=== PATIENT | male | born 1965 | race Caucasian/White ===

== ENCOUNTER 2021-12-05 09:29 | Inpatient (IN) | payer BC, OTHER, SELFPAY ==
[2021-12-05] MEDS ORDERED: ASPIRIN 81 MG CHEWABLE TABLET ONE (10:24)
[2021-12-05 10:25] LABS: Absolute Lymphocytes (CBC) 1.1 K/uL (0.7-4.9); Hematocrit 48.8 % (39.6-49.0); Lymphocytes % 16.4 % (15.3-44.8); MPV 7.9 fL (7.6-11.3)
[2021-12-05] MEDS ORDERED: METOPROLOL TARTRATE 5 MG/5 ML INJ IV ONE ×2 (10:26→11:07)
--- NOTE | 2021-12-05 10:30 | EDPHYS ---
Physician Documentation [facility] Name: Jean Paul Gregorio Jr Age: 55 yrs Sex: Male : 1965 Arrival Date: 12/05/2021 Time: 09:31 Bed 19 Private MD: ED Physician Kierra Parkinson HPI: 12/05 10:02 This 55 yrs old Male presents to ER via Wheelchair with complaints of Chest Pain, pm1 Shortness Of Breath. 10:02 The patient or guardian reports chest pain that is located primarily in the anterior pm1 aspect of right upper chest, anterior aspect of left upper chest and mid-sternal area. Onset: at 08:00. The pain radiates to both arms. Associated signs and symptoms: Pertinent positives: shortness of breath, Pertinent negatives: abdominal pain, dizziness, headache, nausea, vomiting. The chest pain is described as a pressure. 10:02 Duration: The patient or guardian reports a single episode, that is still ongoing, but pm1 improving. Modifying factors: The symptoms are alleviated by nothing. the symptoms are aggravated by nothing. Severity of pain: At its worst the pain was a 7 / 10 in the emergency department the pain has improved is a 4 / 10. The patient has not experienced similar symptoms in the past. The patient has not recently seen a physician, last saw Dr Bah 20 years ago. 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 Patient started to experience chest pain across his chest with numbness tingling to bilateral hands worse to left arm. Patient also experienced shortness of breath with his chest pain. At worst pain 7/10 and has improved to 4/10 on presentation to the ER. Historical: - Allergies: 09:49 PENICILLINS; iw - Home Meds: 09:49 None [Active]; iw - PMHx: 09:49 None; iw - PSHx: 09:49 hernia repair; iw - Immunization history:: Client reports having NOT received the Covid vaccine. - Social history:: Smoking status: Patient reports the use of cigarette tobacco products, cigars. ROS: 10:02 Constitutional: Negative for fever, chills, and weight loss. pm1 10:02 Abdomen/GI: Negative for abdominal pain, nausea, vomiting, diarrhea, and constipation, Back: Negative for injury and pain, MS/Extremity: Negative for injury and deformity, Skin: Negative for injury, rash, and discoloration. 10:02 Cardiovascular: Positive for chest pain. 10:02 Respiratory: Positive for shortness of breath. 10:02 Neuro: Positive for tingling, of the right hand, left hand and left arm, Negative for dizziness, headache. 10:02 All other systems are negative. Exam: 10:02 Head/Face: Normocephalic, atraumatic. pm1 10:02 Constitutional: The patient appears well developed, well hydrated, well groomed, well nourished. 10:02 Back: No spinal tenderness. No costovertebral tenderness. Full range of motion. pm1 Skin: Warm, dry with normal turgor. Normal color with no rashes, no lesions, and no evidence of cellulitis. MS/ Extremity: Pulses equal, no cyanosis. Neurovascular intact. Full, normal range of motion. 10:02 Constitutional: The patient appears uncomfortable. 10:02 Head/face: Exam is negative for acute changes. 10:02 Eyes: Exam is negative for acute changes, Periorbital structures: appear normal, Pupils: no acute changes, Extraocular movements: no acute changes, Conjunctiva: no acute changes, no injection. 10:02 ENT: Exam is negative for acute changes, Mouth: no acute changes, Lips: normal, moist, Oral mucosa: normal, pink and intact, moist. 10:02 Cardiovascular: Exam negative for acute changes, Rate: bradycardic, actual rate is 54 bpm, Rhythm: regular, Pulses: no pulse deficits are appreciated, Heart sounds: normal, normal S1and S2. 10:02 Respiratory: Exam negative for acute changes, respiratory distress, shortness of breath, Breath sounds: are clear throughout. 10:02 Abdomen/GI: Exam negative for acute changes, Inspection: abdomen appears normal, Palpation: abdomen is soft and non-tender, in all quadrants. 10:02 Neuro: Exam negative for acute changes, Orientation: is normal, Mentation: is normal, Motor: is normal, moves all fours. Vital Signs: 09:47 BP 157 / 81; Pulse 54; Resp 18 S; Temp 98.1; Pulse Ox 100% on R/A; Weight 97.52 kg; iw Height 5 ft. 8 in. (172.72 cm); Pain 4/10; 09:47 Body Mass Index 32.69 (97.52 kg, 172.72 cm) iw MDM: 09:56 Patient medically screened. pm1 10:04 Data reviewed: vital signs. Data interpreted: Pulse oximetry: on room air is 100 %. pm1 Interpretation: normal. 10:14 Physician consultation: Jose Enrique Lockhart MD was contacted at 10:14, regarding admission, pm1 patient's condition, and will see patient in the laboratory director, would like medications started, aspirin and lopressor, Activating laboratory director. 10:18 Counseling: I had a detailed discussion with the patient and/or guardian regarding: the pm1 historical points, exam findings, and any diagnostic results supporting the discharge/admit diagnosis, the need for further work-up and treatment in the hospital. 12/05 10:02 Order name: Basic Metabolic Panel; Complete Time: 13:54 pm1 12/05 10:02 Order name: CBC with Diff; Complete Time: 10:33 pm1 12/05 10:02 Order name: LFT's; Complete Time: 13:54 pm1 12/05 10:02 Order name: Magnesium; Complete Time: 13:54 pm1 12/05 10:02 Order name: NT PRO-BNP; Complete Time: 13:54 pm1 12/05 10:02 Order name: PT-INR; Complete Time: 10:36 pm1 12/05 10:02 Order name: Troponin HS; Complete Time: 13:54 pm1 12/05 10:02 Order name: EKG; Complete Time: 10:03 pm1 12/05 10:02 Order name: Cardiac monitoring; Complete Time: 10: pm12/05 10:02 Order name: EKG - Nurse/Tech; Complete Time: 10: pm12/05 10:02 Order name: IV Saline Lock; Complete Time: 10: pm12/05 10:02 Order name: Labs collected and sent; Complete Time: 10: pm12/05 10:02 Order name: O2 Per Protocol; Complete Time: 10: pm12/05 10:02 Order name: O2 Sat Monitoring; Complete Time: 10: pm1 Administered Medications: 10:15 CANCELLED (Physician Discretion): PlaVIX (clopidogrel) 300 mg PO once pm1 10:18 Drug: Aspirin Chewable Tablet 324 mg Route: PO; ss 10:24 Not Given (labor operator states not to give at this time due to HR 61'): Lopressor ss (metoprolol) 5 mg IVP every 5 minutes; Hold for SBP < 100 or HR < 60. x3 Disposition Summary: 12/05/21 10:29 Hospitalization Ordered Hospitalization Status: Inpatient Admission pm1 Provider: Jose Enrique Lockhart pm1 Location: Weight Control Engineer pm1 Condition: Stable pm1 Problem: new pm1 Symptoms: have improved pm1 Bed/Room Type: Standard pm1 Room Assignment: pm1 Diagnosis - ST elevation (STEMI) myocardial infarction of inferior wall pm1 Forms: - Medication Reconciliation Form pm1 - SBAR form pm1 Addendum: 12/07/2021 18:34 Co-signature as Attending Physician, Kierra Parkinson MD. m a2 Signatures: Dispatcher [employer] EDYulissa Nuñez RN RN Carlotta Kumari RN RN Stanley Prater, FAN RUNNER FAN RUNNER pm1 Kierra Parkinson MD MD ma2 Corrections: (The following items were deleted from the chart) 12/05 09:49 09:49 Allergies: No Known Allergies; [facility] 10:15 10:13 PlaVIX (clopidogrel) 300 mg PO once ordered. pm1 pm1
--- NOTE | 2021-12-05 10:30 | ER ---
Nurse's Notes [facility] Name: Jean Paul Gregorio Jr Age: 55 yrs Sex: Male : 1965 Arrival Date: 12/05/2021 Time: 09:31 Bed 19 Private MD: Diagnosis: ST elevation (STEMI) myocardial infarction of inferior wall Presentation: 12/05 09:47 Chief complaint: Patient states: chest tightness and pain radiating into left arm since iw 8 am today, denies n/v, feels clammy. Coronavirus screen: At this time, the client does not indicate any symptoms associated with coronavirus-19. Ebola Screen: Patient negative for fever greater than or equal to 101.5 degrees Fahrenheit, and additional compatible Ebola Virus Disease symptoms Patient denies exposure to infectious person. Patient denies travel to an Ebola-affected area in the 21 days before illness onset. No symptoms or risks identified at this time. Initial Sepsis Screen: Does the patient meet any 2 criteria? No. Patient's initial sepsis screen is negative. Does the patient have a suspected source of infection? No. Patient's initial sepsis screen is negative. Risk Assessment: Do you want to hurt yourself or someone else? Patient reports no desire to harm self or others. Onset of symptoms was December 05, 2021. 09:47 Method Of Arrival: Wheelchair iw 09:47 Acuity: RONI 2 iw Historical: - Allergies: 09:49 PENICILLINS; iw - Home Meds: 09:49 None [Active]; iw - PMHx: 09:49 None; iw - PSHx: 09:49 hernia repair; iw - Immunization history:: Client reports having NOT received the Covid vaccine. - Social history:: Smoking status: Patient reports the use of cigarette tobacco products, cigars. Screenin:20 Abuse screen: Denies threats or abuse. Denies injuries from another. Nutritional ss screening: No deficits noted. Tuberculosis screening: Never had TB. Fall Risk None identified. Assessment: 10:20 Reassessment: construction or leak gang laborer nurses, KOBE Carmona and KOBE Keenan at bedside prepping patient for ss cath and signing consent. 10:25 Reassessment: Pt to RETAIL COSMETICS SALES COUNTER MANAGER NOW WITH NURSES, ON MONITOR. at bedside. construction or leak gang laborer ss team states that patient will return to ER because there are no ICU beds at this time. Vital Signs: 09:47 BP 157 / 81; Pulse 54; Resp 18 S; Temp 98.1; Pulse Ox 100% on R/A; Weight 97.52 kg; iw Height 5 ft. 8 in. (172.72 cm); Pain 4/10; 09:47 Body Mass Index 32.69 (97.52 kg, 172.72 cm) iw ED Course: 09:31 Patient arrived in ED. mr 09:49 Triage completed. iw 09:49 Arm band placed on. iw 09:56 Stanley Prater NP is PHCP. pm1 09:56 Kierra Parkinson MD is Attending Physician. pm1 10:10 Patient has correct armband on for positive identification. alarm security or surveillance monitor on. Pulse ss ox on. NIBP on. 10:10 No provider procedures requiring assistance completed. Inserted saline lock: 20 gauge ss in right antecubital area, using aseptic technique. Blood collected. Patient admitted, IV remains in place. Patient maintains SpO2 saturation greater than 95% on room air. 10:24 Carlotta Kumari RN is Primary Nurse. ss 10:29 Jose Enrique Lockhart MD is Hospitalizing Provider. pm1 10:47 Primary Nurse role handed off by Carlotta Kumari RN ss 10:50 Ruth Escamilla RN is Primary Nurse. vg1 Administered Medications: 10:15 CANCELLED (Physician Discretion): PlaVIX (clopidogrel) 300 mg PO once pm1 10:18 Drug: Aspirin Chewable Tablet 324 mg Route: PO; ss 10:24 Not Given (construction or leak gang laborer states not to give at this time due to HR 61'): Lopressor ss (metoprolol) 5 mg IVP every 5 minutes; Hold for SBP < 100 or HR < 60. x3 Outcome: 10:28 Admitted to Beef Cattle Farm Manager accompanied by nurse, family with patient, via stretcher, Report ss called to KOBE Keenan and KOBE Carmona 10:28 Condition: stable 10:28 Instructed on the need for admit. 10:29 Decision to Hospitalize by Provider. pm1 10:40 Patient left the ED. bd 10:56 Patient left the ED. ss Signatures: Wilda CruzaShira mr Yulissa Shirley RN RN Carlotta Kumari RN RN Stanley Prater NP [facility]IA[facility] pm1 Ruth Escamilla, RN RN vg1 Corrections: (The following items were deleted from the chart) 09:49 09:49 Allergies: No Known Allergies; [facility] 10:10 Admitted to Beef Cattle Farm Manager accompanied by nurse, family with patient, via stretcher, Report called to KOBE Keenan and KOBE Carmona ss 10:10 Condition: stable [facility] 10:10 Instructed on the need for admit, the rehabilitation [facility]
[2021-12-05 10:33] LABS: Protime INR 1.02
[2021-12-05] MEDS ORDERED: FENTANYL CITR 100 MCG/2 ML ONE (10:37)
[2021-12-05] MEDS ORDERED: MIDAZOLAM HCL 2 MG/2 ML INJ ONE ×3 (10:38→11:03)
[2021-12-05] MEDS ORDERED: ATROPINE SULF 1 MG/10 ML SYR IV ONE (10:38)
[2021-12-05] MEDS ORDERED: NA CHLORIDE 0.9% 50 ML ONE ×2 (10:39→10:41)
[2021-12-05] MEDS ORDERED: NITROGLYCERIN/D5W 25 MG/250 ML BTL IV ONE (10:39)
[2021-12-05] MEDS ORDERED: NA CHLORIDE 0.9% 500 ML ONE ×2 (10:44→11:21)
[2021-12-05 10:48] LABS: Albumin 3.9 g/dL (3.4-5.0); Bilirubin Direct 0.2 mg/dL (0-0.2); Bilirubin Total 0.5 mg/dL (0.2-1.0); Magnesium 2.2 mg/dL (1.8-2.4); Potassium 3.7 mmol/L (3.5-5.1); Protein, Total 8.3 g/dL (6.4-8.2)
[2021-12-05 10:52] LABS: Troponin High Sensitivity 459.8 pg/mL (<58.9)
[2021-12-05] MEDS ORDERED: AMIODARONE IN DEXTROSE,ISO-OSM 0 MG/0 ML BAG IV ONE (11:04)
[2021-12-05] MEDS ORDERED: NITROPRUSSIDE 50 MG VIAL IV ONE (11:10)
[2021-12-05] MEDS ORDERED: D5W 250 ML IV ONE (11:10)
[2021-12-05] MEDS ORDERED: PRASUGREL (EFFIENT) 10 MG TAB ONE (11:11)
[2021-12-05] MEDS ORDERED: NITROGLYCERIN 0.4 MG/TAB SL PRN (13:00)
[2021-12-05] MEDS ORDERED: ONDANSETRON 4 MG/2 ML VIAL IV PRN (13:00)
[2021-12-05] MEDS: NA CHLORIDE 0.9% 1,000 ML IV SCH ×2 (13:00→19:39)
[2021-12-05] MEDS ORDERED: MORPHINE 4 MG/ML SYR ONE (14:49)
[2021-12-05] MEDS: MORPHINE 4 MG/ML SYR IV PRN ×2 (14:50→18:29)
[2021-12-05 15:46] VITALS: BMI 32.8
[2021-12-05] MEDS ORDERED: ACETAMINOPHEN 325 MG TABLET PO PRN (16:44)
[2021-12-05] MEDS ORDERED: NA CHLORIDE 0.9% 1,000 ML IV SCH (17:00)
[2021-12-05] MEDS: METOPROLOL TAR 25 MG TAB PO SCH (17:26)
[2021-12-05] MEDS: ATORVASTATIN 80 MG TAB PO SCH (20:05)
[2021-12-06 04:11] VITALS: O2SAT 98
[2021-12-06] MEDS: MORPHINE 4 MG/ML SYR IV PRN ×2 (04:41→17:17)
[2021-12-06 05:00] LABS: Absolute Lymphocytes (CBC) 1.3 K/uL (0.7-4.9); Hematocrit 42.4 % (39.6-49.0); Lymphocytes % 13.1 % (15.3-44.8); MPV 8.2 fL (7.6-11.3); RBC Red Blood Cell Count 4.37 M/uL (4.33-5.43)
[2021-12-06 05:19] LABS: BUN Blood Urea Nitrogen 10 mg/dL (7-18); Bicarbonate 24 mmol/L (21-32); Glucose Level 101 mg/dL (74-106); Potassium 4.1 mmol/L (3.5-5.1); Sodium Level 138 mmol/L (136-145)
[2021-12-06] MEDS: METOPROLOL TAR 25 MG TAB PO SCH ×2 (06:00→17:16)
[2021-12-06] MEDS: ASPIRIN 81 MG CHEWABLE TABLET PO SCH (08:04)
[2021-12-06] MEDS: CLOPIDOGREL 75 MG TABLET PO SCH (08:04)
--- NOTE | 2021-12-06 08:10 | EKG ---
Test Date: 2021-12-05 Test Time: 10:10:03 Mechatronics Engineer: TELMA MEASUREMENT RESULTS: Intervals: Rate: 57 CT: 168 QRSD: 90 QT: 432 QTc: 420 [place]: P: 56 CT: 168 QRS: 77 T: 98 INTERPRETIVE STATEMENTS: Sinus bradycardia Possible Left atrial enlargement ST elevation, consider inferior injury or acute infarct ACUTE WA Consider right ventricular involvement in acute inferior infarct Abnormal ECG Compared to ECG 01/22/1997 07:47:00 ST (T wave) deviation now present Myocardial infarct finding now present Myocardial infarct finding now present Sinus rhythm no longer present Electronically Signed On 12-06-21 08:07:10 CDT by Jose Enrique Lockhart
[2021-12-06] MEDS: NA CHLORIDE 0.9% 1,000 ML IV SCH ×3 (09:09→21:40)
--- NOTE | 2021-12-06 13:44 | ECHO ---
HEIGHT: 5 ft 8 in WEIGHT: 216 lb 0 oz DATE OF STUDY: 12/06/[address]: Jose Enrique Lockhart MD 2-DIMENSIONAL: YES M.MODE: YES DOPPLER: YES COLOR FLOW: YES TDS: NO PORTABLE: YES DEFINITY: NO BUBBLE STUDY: NO DIAGNOSIS: POST STEMI CARDIAC HISTORY: CATHERIZATION: SURGERY: PROSTHETIC VALVE: PACEMAKER: MEASUREMENTS (cm) DIASTOLIC (NORMALS) SYSTOLIC (NORMALS) IVSd 1.1 (0.6-1.2) LA Diam 2.9 (1.9-4.0) LVEF 54% LVIDd 4.8 (3.5-5.7) LVIDs 3.4 (2.0-3.5) %FS 28% LVPWd 1.1 (0.6-1.2) Ao Diam 3.5 (2.0-3.7) 2 DIMENSIONAL ASSESSMENT: RIGHT ATRIUM: NORMAL LEFT ATRIUM: NORMAL RIGHT VENTRICLE: NORMAL LEFT VENTRICLE: NORMAL TRICUSPID VALVE: NORMAL MITRAL VALVE: NORMAL PULMONIC VALVE: NORMAL AORTIC VALVE: NORMAL PERICARDIAL EFFUSION: NONE AORTIC ROOT: NORMAL LEFT VENTRICULAR WALL MOTION: NORMAL. DOPPLER/COLOR FLOW: NORMAL. COMMENTS: NORMAL 2D ECHO WITH DOPPLER. NO WALL MOTION ABNORMALITY. NO EFFUSION. TECHNOLOGIST: TYSON DOHERTY
[2021-12-06] MEDS: ATORVASTATIN 80 MG TAB PO SCH (21:38)
[2021-12-07] MEDS: METOPROLOL TAR 25 MG TAB PO SCH (05:09)
[2021-12-07 05:11] VITALS: BP 131/77
[2021-12-07 05:33] VITALS: TEMP 97.4
[2021-12-07] MEDS: CLOPIDOGREL 75 MG TABLET PO SCH (08:50)
[2021-12-07] MEDS: ASPIRIN 81 MG CHEWABLE TABLET PO SCH (08:50)
--- NOTE | 2021-12-07 12:09 | PN ---
Date of Progress Note: 12/06/2021 Subjective: Mr. Gregorio came in with an acute anterior PR, underwent an angioplasty and stent of th e RCA emergently. Overnight, he has done well. He has some chest pain. Physical Examination: Vital Signs: Stable. He is afebrile. He is in sinus rhythm. Chest: Clear. Extremities: Showed no edema. Groin site is intact without any hematoma. Plan: To continue aspirin, Plavix, Lipitor, and metoprolol and send him home in the morning. VIKASH/JOSIAS Voice ID: [id number] Report ID: [id number]
--- NOTE | 2021-12-07 12:15 | PN ---
Admission Diagnosis: Acute inferior myocardial infarction. Discharge Diagnoses: Acute inferior myocardial infarction, LAD disease, status post primary angiopla sty and stent of the RCA. Discharge Instructions: Plan to follow up in my office in 2 weeks. Normal activities in 48 hours. Low-fat, low-cholesterol diet. He will see me in the office in 2 weeks. Discharge Medications: Include aspirin, Plavix, Lipitor, and metoprolol. Brief Hospital Course: Mr. Gregorio is a patient with no past medical history, admitted with acute i nferior MS, underwent angioplasty and stent of the RCA. He has done very well since without any comp lication. No arrhythmias or congestive heart failure. No groin bleeding. He has LAD disease that n eeds to be attended to down the road. We will plan a stress test in the next few months. He will se e me in the office in 2 weeks. Continue present regimen otherwise. VIKASH/JOSIAS Voice ID: [id number] Report ID: [id number]
--- NOTE | 2021-12-07 13:06 | HP ---
Date of Admission: 12/05/2021 Reason For Admission: Acute inferior DC. History Of Present Illness: Mr. Gregorio is a 55-year-old white male without any past medical histor y, comes in with severe chest pain, substernal, radiating to the jaw and both arms with diaphoresis a nd shortness of breath. EKG showed ST elevation inferiorly. The patient was taken to the labor mediator f rom the emergency room and underwent a catheterization, emergency angioplasty, and stent of the RCA. He was also found to have some LAD disease, which we will plan to tend to later. Past Medical History: Negative. Allergies: NONE. Family History: Noncontributory. Review of Systems: Negative. Social History: Positive for tobacco. Medications: None. Physical Examination: Vital Signs: When I saw him in the emergency room, his vital signs were stable. He was afebrile. H e was in severe chest pain, 8/10. He was in sinus rhythm. HEENT: Negative. Neck: Supple with no bruit. Chest: Clear. Cardiac: Revealed a regular rhythm and rate. No murmurs, gallops, or rubs. Abdomen: Benign. Extremities: Revealed no clubbing, cyanosis, or edema. Diagnostic Data: EKG showed acute inferior DC. Chest x-ray was negative. Labs were pending. Impression And Plan: Acute anterior myocardial infarction. We will go to the labor mediator immediately. Continue aspirin. Continue heparin. We will stop heparin and call to the labor mediator. We will see wh at the catheterization shows before making further decisions. MAYCO Voice ID: [id number]
--- NOTE | 2021-12-07 21:00 | OP ---
Date of Procedure: 12/05/2021 Surgeon: Jose Enrique Lockhart MD Coater Helper: Ms. Ivette Tariq. Procedures: Left heart catheterization, emergency angioplasty and stent to the RCA. Indication: Acute inferior WI. Indications: Mr. Gregorio is 55, no previous history, smoker, came in with an acute inferior WI, bro ught to the laboratory technologist. Procedure In Detail: In the laboratory technologist, heparin had been stopped. He was given aspirin before the cat heterization. He was prepped and draped in routine sterile fashion. Given Versed and fentanyl for s edation. A 6-Armenian sheath introduced in the right common femoral artery successfully using the Seld venkat technique and 10 cc of Xylocaine. Dick catheters were used to do the diagnostic catheteriza tion. He was found to have a completely occluded RCA proximally, large vessel. Left main was normal . Circumflex had diffuse plaquing. The LAD had about 50% proximal LAD, 70% mid LAD with very small distal disease and the LAD is a very small vessel distally about 1.5 mm. We decided to intervene. A JR4 guide catheter 6-Armenian with side hole was used to cannulate the right main. A Lunenburg wire was used to cross the lesion. The patient was pre-dilated with a 3.0 x 15 Emerge noncompliant balloon. Multiple dilatation reestablished flow, some thrombosis. A 3.5 x 20 stent was placed, Synergy with 0 % residual. He was given intracoronary Nipride, intracoronary nitroglycerin, Angiomax, Effient 60 mg with complete resolution of the thrombosis and excellent results. The patient tolerated the procedu re well. He did receive some IV beta blockade for tachycardia. No complications. Blood loss was 5 cc. Total conscious sedation was 60 minutes. The patient received an Angio-Seal in the groin after angiography and showed a normal common femoral artery. Final Diagnoses: 1.Acute inferior myocardial infarction status post successful angioplasty and stent in the right cor onary artery. 2.Left anterior descending artery disease that we may need to tend to later. Plan: Admit him on aspirin, Plavix, Lipitor, low-dose metoprolol. Hopefully send him home in the sc xt day or two. We will eventually do a stress test to see what his LAD status is like and plan inter vention on his LAD as an outpatient. NB/MODL Voice ID: [id number] Report ID: [id number]
== END 2021-12-07 09:15 | disposition home or self-care (01) | DRG 247 ==
LOC: ER 09:29 → 3RD-ICU 12:13 → 2ND 12-06 17:50
PROC: 027034Z Dilation of Coronary Artery, One Artery with Drug-eluting Intraluminal Device, Percutaneous Approach (ICD-10-PCS; principal; 2021-12-05)
PROC: 3E07317 Introduction of Other Thrombolytic into Coronary Artery, Percutaneous Approach (ICD-10-PCS; 2021-12-05)
DX: I21.19 ST elevation (STEMI) myocardial infarction involving other coronary artery of inferior wall (principal); I25.10 Atherosclerotic heart disease of native coronary artery without angina pectoris; F17.210 Nicotine dependence, cigarettes, uncomplicated
CPT/HCPCS: 36415; 80048; 80076; 83735; 83880; 84484; 85025; 85347; 85610; 92928; 92941; 93005; 93306; 93454; 99285; C1725; C1760; C1893; G0269; J0282; J0583; J2250; J3010; J7030; J7040; J7060; Q9967

== ENCOUNTER 2025-01-04 01:26 | Emergency (ER) | payer OTHER, SELFPAY ==
[2025-01-04] MEDS ORDERED: ASPIRIN 81 MG CHEWABLE TABLET ONE (01:36)
[2025-01-04] MEDS ORDERED: NITROGLYCERIN 0.4 MG/TAB SL ONE (01:36)
[2025-01-04] MEDS ORDERED: MORPHINE 4 MG/ML SYR ONE (01:36)
[2025-01-04] MEDS ORDERED: TENECTEPLASE 50 MG/10 ML VIAL IV ONE (01:37)
--- NOTE | 2025-01-04 01:47 | EDPHYS ---
Physician Documentation [facility] Name: Jean Paul Gregorio Jr Age: 59 yrs Sex: Male : 1965 Arrival Date: 01/04/2025 Time: : Bed 4 Private MD: ED Physician Lei Go HPI: 01/04 01:55 This 59 yrs old Male presents to ER via Wheelchair with complaints of Chest Pain, rt Shortness Of Breath. 01:55 Patient presents to the ED with chest pain starting at about 11 PM. Developed shortness rt of breath about an hour following that. Patient states that symptoms have worsened during that time. Denies other acute complaints at this time, symptoms are severe in severity, no other aggravating or alleviating factors.. Historical: - Allergies: :41 PENICILLINS; hm5 - PMHx: :41 Myocardial infarction; hm5 - PSHx: 01:41 hernia repair; Stented artery; hm5 - Immunization history:: Adult Immunizations up to date. - Infectious Disease History:: Denies. - Social history:: Smoking status: unknown. - Family history:: not pertinent. ROS: 01:55 Constitutional: Negative for fever, chills, and weight loss, Abdomen/GI: Negative for rt abdominal pain, nausea, vomiting, diarrhea, and constipation, MS/Extremity: Negative for injury and deformity, Skin: Negative for injury, rash, and discoloration, Neuro: Negative for headache, weakness, numbness, tingling, and seizure, 01:55 Cardiovascular: Positive for chest pain, Negative for edema, 01:55 Respiratory: Positive for shortness of breath, Negative for cough, Exam: 01:55 Head/Face: Normocephalic, atraumatic. Chest/axilla: Normal chest wall appearance and rt motion. Nontender with no deformity. No lesions are appreciated. Cardiovascular: Regular rate and rhythm with a normal S1 and S2. No gallops, murmurs, or rubs. Normal PMI, no JVD. No pulse deficits. MS/ Extremity: Pulses equal, no cyanosis. Neurovascular intact. Full, normal range of motion. Neuro: Awake and alert, GCS 15, oriented to person, place, time, and situation. Cranial nerves II-XII grossly intact. Motor strength 5/5 in all extremities. Sensory grossly intact. Cerebellar exam normal. Normal gait. 01:55 Constitutional: The patient appears Pale, diaphoretic, acutely distressed 01:55 ECG was reviewed by the Attending Physician. 01:55 ECG was reviewed by the Attending Physician. 01:55 Respiratory: Diffuse crackles heard in all lung pearson, severe respiratory distress, Vital Signs: 01:37 BP 170 / 90; Pulse 130; Resp 30; Pulse Ox 78% on 15 lpm Non-rebreather mask; Weight hm5 81.65 kg; Height 5 ft. 3 in. ; 02:00 BP 201 / 113; Pulse 134; Resp 38; Pulse Ox 86% on BiPAP; FiO2 100 %; jb4 02:11 BP 181 / 102; Pulse 117; Resp 38; Pulse Ox 89% on BiPAP; FiO2 100 %; jb4 02:22 BP 159 / 93; Pulse 107; Resp 40; Pulse Ox 96% on BiPAP; FiO2 100 %; jb4 02:55 BP 130 / 84; Pulse 89; Resp 24; Pulse Ox 98% on BiPAP; FiO2 100 %; jb4 01:37 Body Mass Index 31.89 (81.65 kg, 160.02 cm) [facility] MDM: 01:32 Medical Screening Exam initiated rt 02:57 Differential diagnosis: STEMI, acute heart failure. The patient was given aspirin in rt the Emergency Department. Data reviewed: vital signs, nurses notes, lab test result(s), radiologic studies. Consideration of Admission/Observation Patient requires transfer for [facility]. 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 I considered the following discharge prescriptions or medication management in the emergency department Medications were administered in the Emergency Department. See MAR. Independent interpretation of the following test(s) in the Emergency Department X-Ray: My interpretation is Pulmonary edema syndrome interpretation of x-ray images. Care significantly affected by the following chronic conditions: Coronary artery disease. Counseling: I had a detailed discussion with the patient and/or guardian regarding the historical points, exam findings, and any diagnostic results supporting the discharge/admit diagnosis, the need to transfer to another facility. Response to treatment: the patient's symptoms have markedly improved after treatment. 01/04 01:33 Order name: Basic Metabolic Panel; Complete Time: 02:31 rt 01/04 01:33 Order name: CBC with Diff; Complete Time: 02:31 rt 01/04 01:33 Order name: LFT's; Complete Time: 02: rt 01/04 01:33 Order name: NT PRO-BNP; Complete Time: 02: rt 01/04 01:33 Order name: PT-INR; Complete Time: 02: rt 01/04 01:33 Order name: Troponin HS; Complete Time: 02: rt 01/04 01:33 Order name: XRAY Chest (1 view) rt 01/04 01:34 Order name: BIPAP rt 01/04 01:33 Order name: Cardiac monitoring; Complete Time: :41 rt 01/04 01:33 Order name: EKG - Nurse/Tech; Complete Time: : rt 01/04 01:33 Order name: IV Saline Lock; Complete Time: : rt 01/04 01:33 Order name: Labs collected and sent; Complete Time: : rt 01/04 01:33 Order name: O2 Per Protocol; Complete Time: : rt 01/04 01:33 Order name: O2 Sat Monitoring; Complete Time: :41 rt EC:55 Rate is 100 beats/min. Rhythm is regular, Normal Sinus Rhythm with No ectopy. QRS Evans rt is Normal. QRS interval is normal. QT interval is normal. No Q waves. ST Segment is elevated in leads V2, V3, V4. Clinical impression: Acute NC. 01:55 Rate is 130 beats/min. Rhythm is regular, Sinus tachycardia with No ectopy. QRS Evans is rt Normal. AR interval is normal. QRS interval is normal. QT interval is normal. ST Segment is elevated in leads V3, V4, V5. Clinical impression: Acute NC. Administered Medications: 01:41 Drug: Nitroglycerin Sublingual 0.4 mg Sublingual once; every five minute if needed x3 jb4 Route: Sublingual; 03:35 Follow up: Response: No adverse reaction; Marked relief of symptoms jb4 01:42 Drug: morphine IVP or IV 4 mg IVP once over 4 mins Route: IVP; Infused Over: 4 mins; br2 Site: left antecubital; 03:38 Follow up: Response: No adverse reaction; Marked relief of symptoms jb4 01:46 Drug: Aspirin PO Chewable Tablet 324 mg PO once; 81 mg tablets x 4 Route: PO; jb4 01:56 Drug: TNK FOR STROKE - Tenecteplase IV (Administer 10 ml NS flush BEFORE and jb4 AFTER tenecteplase) 0.25 mg/kg IV at per protocol once; 0.25mg/kg, MAX DOSE 25 mg, IVP over 5 seconds {Co-Signature: br2 (Kenzie Rivers RN).} {Note: for [place].} Route: IV; Rate: per protocol; Site: right wrist; 03:38 Follow up: Response: No adverse reaction jb4 02:04 Drug: Clopidogrel PO 300 mg PO once Route: PO; jb4 03:35 Follow up: Response: No adverse reaction jb4 02:04 Drug: Nitroglycerin IV 5 mcg/min IV at calculated rate See Administration Instructions; jb4 Standard concentration 50mg/250mL; Recommended max rate 200 mcg/min; max rate for Angina 400mcg/min; Titrate 5 mcg/min q5min to achieve goal (see titration policy); Goal parameter SBP less than 160 bpm or resolution of chest pain; low-sorbing IV tubing. Route: IV; Rate: calculated rate; Site: right wrist; 03:35 Follow up: IV Status: Infusion continued upon transfer jb4 02:05 Drug: Heparin (NC-Bolus with thrombolytic) - HEParin IVP 60 units/kg IVP once; Max 4000 jb4 units {Co-Signature: br2 (Kenzie Rivers RN).} Route: IVP; Site: left antecubital; 03:38 Follow up: Response: No adverse reaction; Marked relief of symptoms jb4 02:06 Drug: Heparin ([place] Drip) 12 units/kg/[place] - ([place] [address] units, D5W IV 500 ml) IV at jb4 calculated rate Per protocol; Max initial rate 1000 units/hr {Co-Signature: br2 (Kenzie Rivers RN).} Route: IV; Rate: calculated rate; Site: left antecubital; 03:34 Follow up: IV Status: Infusion continued upon transfer jb4 Disposition: 02:57 Critical Care:. rt Disposition Summary: 01/04/25 01:46 Transfer Ordered Notes: Transfer Location: [facility] rt Reason: Higher level of care rt Condition: Critical rt Problem: new rt Symptoms: are unchanged rt Accepting Physician: (01/04/25 03:38) jb4 Diagnosis - ST elevation (STEMI) myocardial infarction of unspecified site rt - Hypoxic respiratory failure rt Forms: - Medication Reconciliation Form rt - SBAR form rt Critical care time excluding procedures: 02:57 Critical care time: Bedside Care: 40 minutes, Consultation: 10 minutes. Total time: 50 rt minutes Signatures: Dispatcher [employer] EDMS Ramos Esteves RN RN jb4 Lei Go MD MD rt Kenzie Rivers RN RN br2 Sera Nava RN RN hm5 Kenzie Rivers RN br2 Corrections: (The following items were deleted from the chart) 01:34 01:34 BASIC METABOLIC PANEL+C.LAB.BRZ ordered. EDMS EDMS 01:34 01:34 CBC+H.LAB.BRZ ordered. EDMS EDMS 01:34 01:34 HEPATIC FUNCTION+C.LAB.BRZ ordered. EDMS EDMS 01:34 01:34 PROBNP+C.LAB.BRZ ordered. EDMS EDMS 01:34 01:34 PROTIME (+INR)+COAG.LAB.BRZ ordered. EDMS EDMS 01:34 01:34 Troponin High Sensitivity+C.LAB.BRZ ordered. EDMS EDMS 01:34 01:34 Chest Single View+RAD.RAD.BRZ ordered. EDMS EDMS 03:38 01:46 rt jb4
--- NOTE | 2025-01-04 01:47 | ER ---
Nurse's Notes [facility] Name: Jean Paul Gregorio Jr Age: 59 yrs Sex: Male : 1965 Arrival Date: 01/04/2025 Time: 01:26 Bed 4 Private MD: Diagnosis: ST elevation (STEMI) myocardial infarction of unspecified site;Hypoxic respiratory failure Presentation: 01/04 01:37 Chief complaint: Spouse and/or significant other states: c/o CP and SOB for past 1-2 [facility] hours. Coronavirus screen: At this time, the client does not indicate any symptoms associated with coronavirus-19. Ebola Screen: No symptoms or risks identified at this time. Initial Sepsis Screen: Does the patient meet any 2 criteria? HR > 90 bpm. No. Patient's initial sepsis screen is negative. Does the patient have a suspected source of infection? No. Patient's initial sepsis screen is negative. Risk Assessment: Do you want to hurt yourself or someone else? Patient reports no desire to harm self or others. Onset of symptoms was January 04, 2025. 01:37 Method Of Arrival: Wheelchair [facility] 01:37 Acuity: RONI 2 [facility] Triage Assessment: 01:41 General: Appears distressed, uncomfortable, Behavior is cooperative, anxious, restless. 5 Pain: Complains of pain in chest. EENT: No signs and/or symptoms were reported regarding the EENT system. Neuro: Level of Consciousness is awake, alert, obeys commands, Oriented to person, place, time, situation. Cardiovascular: Capillary refill < 3 seconds Chest pain is described as severe. Respiratory: Airway is patent Respiratory effort is labored, gasping, Respiratory pattern is symmetrical, hyperventilation. GI: No signs and/or symptoms were reported involving the gastrointestinal system. : No signs and/or symptoms were reported regarding the genitourinary system. Derm: Skin is intact, Skin is clammy, diaphoretic, Skin is dusky, Skin temperature is cool. Historical: - Allergies: 01:41 PENICILLINS; hm5 - PMHx: 01:41 Myocardial infarction; hm5 - PSHx: 01:41 hernia repair; Stented artery; hm5 - Immunization history:: Adult Immunizations up to date. - Infectious Disease History:: Denies. - Social history:: Smoking status: unknown. - Family history:: not pertinent. Screenin:51 [facility] ED Fall Risk Assessment (Adult) History of falling in the last 3 months, 5 including since admission No falls in past 3 months (0 pts) Confusion or Disorientation No (0 pts) Intoxicated or Sedated No (0 pts) Impaired Gait No (0 pts) Mobility Assist Device Used No (0 pt) Altered Elimination No (0 pt) Score/Fall Risk Level 0 - 2 = Low Risk Oriented to surroundings, Maintained a safe environment, Hourly rounding (assess needs \T\ fall precautionary measures) done. Abuse screen: Denies threats or abuse. Denies injuries from another. Nutritional screening: No deficits noted. Tuberculosis screening: No symptoms or risk factors identified. Assessment: 01:50 Pain: Pain does not radiate. Pain began 2 hours ago. Respiratory: Patient placed on hm5 BiPAP: Inspiratory Pressure: 14 Expiratory (EPAP) Pressure: 8 FiO2%: 100 Respiratory Rate: 18. 02:30 Reassessment: Pt feeling much better, denies chest pain, reports SOB has improved. jb4 03:08 Reassessment: Pt remains diaphoretic on his scalp, reports feeling significantly jb4 better, denies SOB or CP. Pt transferred to receiving facility via Life flight. Vital Signs: 01:37 BP 170 / 90; Pulse 130; Resp 30; Pulse Ox 78% on 15 lpm Non-rebreather mask; Weight 5 81.65 kg; Height 5 ft. 3 in. ; 02:00 BP 201 / 113; Pulse 134; Resp 38; Pulse Ox 86% on BiPAP; FiO2 100 %; jb4 02:11 BP 181 / 102; Pulse 117; Resp 38; Pulse Ox 89% on BiPAP; FiO2 100 %; jb4 02:22 BP 159 / 93; Pulse 107; Resp 40; Pulse Ox 96% on BiPAP; FiO2 100 %; jb4 02:55 BP 130 / 84; Pulse 89; Resp 24; Pulse Ox 98% on BiPAP; FiO2 100 %; jb4 01:37 Body Mass Index 31.89 (81.65 kg, 160.02 cm) [facility] ED Course: 01:30 Patient arrived in ED. rv1 01:32 Lei Go MD is Attending Physician. rt 01:32 Initiated transfer with Yuly at [facility]. rv1 01:37 Sera Nava, RN is Primary Nurse. hm5 01:41 Triage completed. hm5 01:42 Arm band placed on right wrist. Patient placed in the treatment room, in view of staff [facility] members, on oxygen, on monitor technician, on pulse oximetry. 01:51 Patient has correct armband on for positive identification. Bed in low position. Call 5 light in reach. Side rails up X2. Provided Education on: plan of care, need for transfer. Client placed on continuous cardiac and pulse oximetry monitoring. NIBP monitoring applied. nuclear monitoring technician on. Pulse ox on. 01:51 No provider procedures requiring assistance completed. Inserted saline lock: 20 gauge hm5 in right forearm, using aseptic technique. Blood collected. Flushed with 10 mL NS. O2 via BiPAP. 01:52 Inserted saline lock: 18 gauge in left antecubital area, using aseptic technique. hm5 Flushed with 10 mL NS. 02:[address] Brian to [facility] CCU 2 [id number]. Report # [id number]. rv1 02:06 Called [facility], Corie said she would call me back to take rv1 information as she was dealing with a problem. 02:15 XRAY Chest (1 view) In Process Unspecified. EDMS 02:16 Corie with [facility] gave 32 min ETA. rv1 02:33 Corie with [facility] called to give update that ETA is 15 mins. rv1 03:38 Patient transferred, IV remains in place. jb4 Administered Medications: 01:41 Drug: Nitroglycerin Sublingual 0.4 mg Sublingual once; every five minute if needed x3 jb4 Route: Sublingual; 03:35 Follow up: Response: No adverse reaction; Marked relief of symptoms jb4 01:42 Drug: morphine IVP or IV 4 mg IVP once over 4 mins Route: IVP; Infused Over: 4 mins; br2 Site: left antecubital; 03:38 Follow up: Response: No adverse reaction; Marked relief of symptoms jb4 01:46 Drug: Aspirin PO Chewable Tablet 324 mg PO once; 81 mg tablets x 4 Route: PO; jb4 01:56 Drug: TNK FOR STROKE - Tenecteplase IV (Administer 10 ml NS flush BEFORE and jb4 AFTER tenecteplase) 0.25 mg/kg IV at per protocol once; 0.25mg/kg, MAX DOSE 25 mg, IVP over 5 seconds {Co-Signature: br2 (Kenzie Rivers RN).} {Note: for [place].} Route: IV; Rate: per protocol; Site: right wrist; 03:38 Follow up: Response: No adverse reaction jb4 02:04 Drug: Clopidogrel PO 300 mg PO once Route: PO; jb4 03:35 Follow up: Response: No adverse reaction jb4 02:04 Drug: Nitroglycerin IV 5 mcg/min IV at calculated rate See Administration Instructions; jb4 Standard concentration 50mg/250mL; Recommended max rate 200 mcg/min; max rate for Angina 400mcg/min; Titrate 5 mcg/min q5min to achieve goal (see titration policy); Goal parameter SBP less than 160 bpm or resolution of chest pain; low-sorbing IV tubing. Route: IV; Rate: calculated rate; Site: right wrist; 03:35 Follow up: IV Status: Infusion continued upon transfer jb4 02:05 Drug: Heparin ([place]-Bolus with thrombolytic) - HEParin IVP 60 units/kg IVP once; Max 4000 jb4 units {Co-Signature: br2 (Kenzie Rivers RN).} Route: IVP; Site: left antecubital; 03:38 Follow up: Response: No adverse reaction; Marked relief of symptoms jb4 02:06 Drug: Heparin ([place] Drip) 12 units/kg/[place] - ([place] [address] units, D5W IV 500 ml) IV at jb4 calculated rate Per protocol; Max initial rate 1000 units/hr {Co-Signature: br2 (Kenzie Rivers RN).} Route: IV; Rate: calculated rate; Site: left antecubital; 03:34 Follow up: IV Status: Infusion continued upon transfer jb4 Medication: 01:51 VIS not applicable for this client. hm5 Outcome: 01:46 ER care complete, transfer ordered by . rt 03:33 Transferred by helicopter to [facility], Transfer form completed. jb4 X-rays sent w/ patient. 03:33 Condition: stable 03:33 Discharge instructions given to patient, significant other, Instructed on the need for transfer, Demonstrated understanding of instructions, 03:38 Patient left the ED. jb4 Signatures: Dispatcher [employer] EDMS Ramos Esteves, RN RN jb4 Lei Go MD MD rt Coleen Bonilla rv1 Kenzie Rivers RN RN br2 Sera Nava RN RN hm5 Kenzie Rivers RN br2 Corrections: (The following items were deleted from the chart) 01:50 01:41 Respiratory: Airway is patent Respiratory effort is labored, gasping, Respiratory hm5 pattern is symmetrical, hyperventilation Patient placed on BiPAP: Inspiratory Pressure: 14 Expiratory (EPAP) Pressure: 8 FiO2%: 100 Respiratory Rate: 18 hm5 02:11 02:08 BP 201 / 113; Pulse 134bpm; Resp 38bpm; Pulse Ox 86% BiPAP FiO2 100%; jb4 jb4 03:12 03:11 Diet: rv1 rv1
[2025-01-04] MEDS ORDERED: HEPARIN 5000 UNIT/ML 1 ML VIAL ONE (01:51)
[2025-01-04] MEDS ORDERED: HEPARIN/D5W 25,000 UNIT/500 ML BAG IV ONE (01:51)
[2025-01-04] MEDS ORDERED: CLOPIDOGREL 75 MG TABLET ONE (01:51)
[2025-01-04] MEDS ORDERED: NITROGLYCERIN/D5W 50 MG/250 ML BTL IV ONE (01:51)
[2025-01-04 01:59] LABS: Absolute Basophils 0.1 K/uL (0-0.5); Absolute Eosinophils 0.2 K/uL (0-0.5); Absolute Monocytes 0.9 K/uL (0.1-1.3); Absolute Neutrophil 7.1 K/uL (1.8-8.0); Basophils % 0.8 % (0-1.3); Eosinophils % 1.5 % (0-4.4); Hematocrit 54.5 % (39.6-49.0); Hemoglobin 18.8 g/dL (13.6-17.9); Lymphocytes % 42.1 % (15.3-44.8); MCH 34.4 pg (27.0-35.0); MCHC 34.4 g/dL (32.0-36.0); MCV 99.9 fL (80-100); MPV 8.4 fL (7.6-11.3); Neutrophils % 49.6 % (41.7-73.7); Nucleated Red Blood Cells % 0.2 % (0-0); Platelets 208 thou/uL (152-406); RBC Red Blood Cell Count 5.46 M/uL (4.33-5.43); Red Cell Distribution Width 13.5 % (12.1-15.2)
[2025-01-04 02:08] LABS: Protime INR 0.96
[2025-01-04 02:29] LABS: ALT/SGPT 24 U/L (16-61); AST/SGOT 31 U/L (15-37); Albumin 3.9 g/dL (3.4-5.0); Albumin/Globulin Ratio 0.6 (1.1-1.8); Alkaline Phosphatase 77 U/L (45-117); Anion Gap 17.4 mEq/L (5.0-15.0); BUN Blood Urea Nitrogen 14 mg/dL (7-18); Bicarbonate 21 mEq/L (21-32); Bilirubin Direct < 0.2 mg/dL (0-0.2); Bilirubin Indirect, Calculated 0.2 mg/dL (0.2-0.8); Bilirubin Total 0.4 mg/dL (0.2-1.0); Globulin 6.2 g/dL (2.3-3.5); Glomerular Filtration Rate 66 ml/min (=/>90); Glucose Level 153 mg/dL (74-106); NT PRO-BNP 2131 pg/mL (<125); Potassium 4.4 mEq/L (3.5-5.1); Protein, Total 10.1 g/dL (6.4-8.2); Sodium Level 136 mEq/L (136-145)
[2025-01-04 02:31] LABS: Troponin High Sensitivity 2296.6 pg/mL (<58.9)
--- NOTE | 2025-01-04 02:50 | RAD REPORT ---
EXAM: XR Chest, 1 View CLINICAL HISTORY: CHEST PAIN TECHNIQUE: Frontal view of the chest. COMPARISON: No relevant prior studies available. FINDINGS: Lungs: Central pulmonary vascular and interstitial prominence and bilateral perihilar and basilar o pacities. Pleural space: Slight blunting of the costophrenic angles bilaterally. No pneumothorax. Heart: The cardiac silhouette is mildly enlarged, in part accentuated by portable technique. Mediastinum: Unremarkable. Normal mediastinal contour. Bones/joints: Multilevel spondylosis. No acute fracture. Vasculature: Thoracic aortic atherosclerosis. IMPRESSION: Findings which may be related to pulmonary congestion including possible small bilateral pleural effu sions. Superimposed infection not excluded. Electronically signed by: Elkin Jhaveri MD 01/04/2025 02:37 AM CDT Transcribed Date/Time: 01/04/2025 2:49 AM
[2025-01-04 03:53] VITALS: BP 130/84; O2SAT 98
== END 2025-01-04 03:38 | disposition short-term general hospital (02) ==
LOC: ER 01:26
DX: I21.3 ST elevation (STEMI) myocardial infarction of unspecified site (principal); J96.91 Respiratory failure, unspecified with hypoxia; I25.2 Old myocardial infarction
CPT/HCPCS: 36415; 71045; 80048; 80076; 83880; 84484; 85025; 85610; 92977; 93005; 94660; 99285; J1644; J3101